=== PATIENT | female | born 1975 | race Caucasian/White ===

== ENCOUNTER → 2016-10-01 | Outpatient (REF) | payer OTHER ==
[2016-10-01 13:17] LABS: PERCENT SATURATION 16.6 % (13.2-37.4)
== END ==
LOC: M LAB REF 11:24
PROVIDERS: ATTEND Internal Medicine Medical Oncology
DX: D59.9 Acquired hemolytic anemia, unspecified (principal)

== ENCOUNTER → 2018-04-21 | Outpatient (REF) | payer OTHER ==
[2018-04-21 17:23] LABS: BASO % 0.6 % (0.0-1.0); HEMATOCRIT 35.3 % (36.0-47.0); HEMOGLOBIN 11.3 g/dl (12.0-15.5); IMMATURE GRANULOCYTE % 0.6 % (0-3.0); LYMPH # 2.2 10^3/uL (1.5-4.5); MEAN CORPUSCULAR HEMOGLOBIN 28.5 pg (27.0-33.0); MEAN CORPUSCULAR VOLUME 88.9 fl (80.0-96.0); MONO # 0.3 10^3/uL (0.0-0.8); MONO % 6.3 % (0.0-5.0); NEUTROPHILS # 2.7 10^3/uL (1.8-7.7); NEUTROPHILS % 51.5 % (36.0-66.0); PLATELET COUNT, AUTOMATED 219 10^3/uL (150-450); RED BLOOD COUNT 3.97 10^6/uL (4.00-5.40); RED CELL DISTRIBUTION WIDTH 14.6 % (11.5-14.5); WHITE BLOOD COUNT 5.3 10^3/uL (4.0-10.0)
[2018-04-21 17:40] LABS: ALBUMIN 3.5 GM/DL (3.2-5.2); ALKALINE PHOSPHATASE 90 U/L (45-117); ALT/SGPT 28 U/L (12-78); ANION GAP 10 MEQ/L (8-16); AST/SGOT 16 U/L (7-37); BILIRUBIN,TOTAL 0.2 MG/DL (0.2-1.0); BLOOD UREA NITROGEN 12 MG/DL (7-18); CALCIUM LEVEL 8.4 MG/DL (8.5-10.1); CARBON DIOXIDE LEVEL 23 MEQ/L (21-32); CHLORIDE LEVEL 109 MEQ/L (98-107); CHOLESTEROL LEVEL 191 MG/DL (<200); CHOLESTEROL RISK RATIO 5.305 (<5); CREATININE FOR GFR 0.61 MG/DL (0.55-1.30); GLOMERULAR FILTRATION RATE > 60.0 (>58); GLUCOSE, FASTING 94 MG/DL (70-100); NON-HDL-C 155 MG/DL; POTASSIUM SERUM 4.3 MEQ/L (3.5-5.1); SODIUM LEVEL 142 MEQ/L (136-145); TRIGLYCERIDES LEVEL 478 MG/DL (<150)
[2018-04-21 21:52] LABS: HDL CHOLESTEROL 36 MG/DL (>40)
[2018-04-22 10:47] LABS: HEPATITIS C VIRUS ABY INDEX 0.1 INDEX (<0.8); HIV 1&2 SCREEN CENTAUR NEGATIVE (NEGATIVE)
== END ==
LOC: M SFHCCAPE 11:52
DX: R11.2 Nausea with vomiting, unspecified (principal); Z11.59 Encounter for screening for other viral diseases; Z11.4 Encounter for screening for human immunodeficiency virus [HIV]; Z13.6 Encounter for screening for cardiovascular disorders; F41.9 Anxiety disorder, unspecified

== ENCOUNTER → 2018-05-25 | Outpatient (CLI) | payer OTHER | LOC: M RAD 09:01 | DX: R93.5 Abnormal findings on diagnostic imaging of other abdominal regions, including retroperitoneum (principal); R11.2 Nausea with vomiting, unspecified | CPT/HCPCS: 76700 ==

== ENCOUNTER → 2018-05-29 | Outpatient (CLI) | payer OTHER ==
[2018-05-29 15:32] LABS: ALBUMIN 3.6 GM/DL (3.2-5.2); ALKALINE PHOSPHATASE 101 U/L (45-117); ALT/SGPT 31 U/L (12-78); AST/SGOT 18 U/L (7-37); BILIRUBIN,DIRECT < 0.1 MG/DL (0.0-0.2); BILIRUBIN,TOTAL 0.2 MG/DL (0.2-1.0); TOTAL PROTEIN 7.2 GM/DL (6.4-8.2)
[2018-05-29 16:46] LABS: CONTROL LINE HPYORI INT CTR LINE PRESENT; H PYLORI QUALITATIVE IgG NEGATIVE (NEGATIVE)
[2018-06-02 08:06] LABS: IgA SERUM (part of Subclasses) 212 mg/dL (87-352); TISSUE TRANSGLUTAMINASE IgA <2 U/mL (0-3)
[2018-06-02 08:06] LABS: H PYLORI SERUM QUANT IGM 13.9 units (0.0-8.9)
== END ==
LOC: M LAB 13:52
DX: R11.2 Nausea with vomiting, unspecified (principal)
CPT/HCPCS: 80076

== ENCOUNTER 2018-06-01 12:45 | Day surgery (SDC) | payer OTHER ==
[2018-06-01] MEDS: NS 1,000 ML IV (13:00)
[2018-06-01] MEDS ORDERED: LIDOCAINE 2% INJ 100 MG/5 ML SDV (FOR ANES.) As Ordered (13:46)
[2018-06-01] MEDS ORDERED: fentaNYL 100 MCG/2 ML INJECTION (J3010) As Ordered (13:46)
[2018-06-01] MEDS ORDERED: PROPOFOL 200 MG/20 ML VIAL As Ordered (13:46)
== END 2018-06-01 14:20 | disposition home or self-care (01) ==
LOC: M OPP 14:20
DX: R11.2 Nausea with vomiting, unspecified (principal); R10.11 Right upper quadrant pain; K29.70 Gastritis, unspecified, without bleeding; K21.9 Gastro-esophageal reflux disease without esophagitis; R12 Heartburn; D64.9 Anemia, unspecified; G43.909 Migraine, unspecified, not intractable, without status migrainosus; M54.9 Dorsalgia, unspecified; F41.9 Anxiety disorder, unspecified; N32.81 Overactive bladder; F17.210 Nicotine dependence, cigarettes, uncomplicated; Z79.899 Other long term (current) drug therapy; Z80.0 Family history of malignant neoplasm of digestive organs; Z80.3 Family history of malignant neoplasm of breast
CPT/HCPCS: 43239

== ENCOUNTER → 2018-08-13 | Outpatient (CLI) | payer OTHER ==
[~2018-08-13] MED LIST: ESZO1TAB6 OP; MECL-86 PO; OMEP40CA2 PO; PROP160C PO; SUMA25TA3 PO; VENL150C43 PO
== END ==
LOC: M LAB 15:52
PROVIDERS: ATTEND Internal Medicine Gastroenterology
DX: K52.9 Noninfective gastroenteritis and colitis, unspecified (principal); B96.81 Helicobacter pylori [H. pylori] as the cause of diseases classified elsewhere

== ENCOUNTER → 2018-09-22 | Outpatient (REF) | payer OTHER ==
[2018-09-22 18:37] LABS: ALBUMIN 3.3 GM/DL (3.2-5.2); ALT/SGPT 23 U/L (12-78); BILIRUBIN,TOTAL 0.4 MG/DL (0.2-1.0); BLOOD UREA NITROGEN 9 MG/DL (7-18); CARBON DIOXIDE LEVEL 26 MEQ/L (21-32); CHLORIDE LEVEL 106 MEQ/L (98-107); CHOLESTEROL LEVEL 196 MG/DL (<200); CHOLESTEROL RISK RATIO 5.444 (<5); CREATININE FOR GFR 0.66 MG/DL (0.55-1.30); GLOMERULAR FILTRATION RATE > 60.0 (>58); GLUCOSE, FASTING 89 MG/DL (70-100); HDL CHOLESTEROL 36 MG/DL (>40); LDL CHOLESTEROL 105 MG/DL (<100); NON-HDL-C 160 MG/DL; POTASSIUM SERUM 4.2 MEQ/L (3.5-5.1); SODIUM LEVEL 138 MEQ/L (136-145); TOTAL PROTEIN 6.9 GM/DL (6.4-8.2); TRIGLYCERIDES LEVEL 275 MG/DL (<150)
[2018-09-22 18:57] LABS: BASO # 0.1 10^3/uL (0.0-0.2); BASO % 0.9 % (0.0-1.0); EOS # 0.3 10^3/uL (0.0-0.50); EOS % 4.3 % (0.0-3.0); HEMATOCRIT 33.6 % (36.0-47.0); HEMOGLOBIN 10.6 g/dl (12.0-15.5); LYMPH # 2.7 10^3/uL (1.5-4.5); LYMPH % 38.5 % (24.0-44.0); MEAN CORPUSCULAR HEMOGLOBIN 26.8 pg (27.0-33.0); MEAN CORPUSCULAR HGB CONC 31.5 g/dl (32.0-36.5); MEAN CORPUSCULAR VOLUME 85.1 fl (80.0-96.0); MONO # 0.5 10^3/uL (0.0-0.8); MONO % 7.8 % (0.0-5.0); NEUTROPHILS # 3.4 10^3/uL (1.8-7.7); NEUTROPHILS % 48.4 % (36.0-66.0); PLATELET COUNT, AUTOMATED 236 10^3/uL (150-450); RED BLOOD COUNT 3.95 10^6/uL (4.00-5.40)
== END ==
LOC: M SFHCCAPE 08:46
PROVIDERS: ATTEND Physician Assistant
DX: E78.1 Pure hyperglyceridemia (principal)

== ENCOUNTER → 2018-10-06 | Outpatient (CLI) | payer OTHER ==
--- NOTE | 2018-10-07 09:28 | REP ---
MRI of the cervical spine without contrast: History: Neck pain. No comparison imaging. Technique: Sagittal and axial T1 and T2-weighted scans are acquired in the usual fashion with and without fat saturation. Sequences include spin echo, turbo spin-echo, and STIR imaging sequences. MRI findings: There is straightening of the normal cervical lordosis. Cervical vertebral body heights are preserved. Cortical and medullary bone signal intensity are normal. There is degenerative disc disease at each level to some degree from C3-4 through C6-7. Cervical cord is normal in coarse, caliber and signal intensity on T1 and T2-weighted scans. Craniocervical junction is unremarkable. Axial and sagittal images taken at the C2-3 level show minimal central disc bulging. No other finding. At C3-4, there is also a small central disc bulge. At C4-5, there is a small focal disc protrusion in a left paracentral position which effaces the ventral margin of the thecal sac and indents the ventral margin of the cord. Canal size is borderline. Midline AP dimension of the thecal sac is 10 mm. No neural foraminal encroachment is appreciated. At C5-6, there is a broad-based right posterior disc protrusion with some associated discogenic spurring. This produces central canal stenosis and mild cord compression. No increased signal intensity is seen in the substance of the cord. There is right-sided uncovertebral spurring producing neural foraminal encroachment. Mild left-sided neural foraminal spurring is seen as well. At C6-7, there is minimal disc bulging. No other finding. The C7-T1 disc level shows no abnormality. Impression: Degenerative spondylosis changes. The dominant abnormality is at C5-6 where there is mild to moderate cord compression and central canal stenosis due to a right posterior broad-based disc protrusion. Bilateral uncovertebral spurring is seen at this level. Electronically Signed by Servando Davis MD 10/07/2018 09:35 A
--- NOTE | 2018-10-07 10:01 | REP ---
MRI lumbar spine without contrast: History: Low back pain, left side. No known injury. No comparison imaging. Technique: Sagittal and axial T1 and T2-weighted scans are acquired in the usual fashion with and without fat saturation. Sequences include spin echo, turbo spin-echo, and STIR imaging sequences. MRI findings: Lumbar vertebral body heights are preserved and alignment is normal. There is no evidence of spondylolysis or spondylolisthesis. Cortical and medullary bone signal intensity are normal. Conus medullaris is normal in position and appearance at L1. No extra vertebral abnormality is observed. At L4-5, there is mild degenerative narrowing of the disc space. Axial and sagittal images show diffuse disc bulging indenting the ventral margin of the thecal sac. Mild facet and ligamentum flavum hypertrophy is seen. Canal size is mildly narrowed at this level, the mid AP dimension of the thecal sac at L4-5 is 9.7 mm. No neural foraminal narrowing is seen. At L5-S1, there is a small left foraminal disc protrusion. There is left posterior disc bulging as well. There is minimal thecal sac compression. At L3-4, there is no significant abnormality. At L2-3, there is slight narrowing of the disc and mild diffuse disc bulging is seen. No central canal stenosis or neural foraminal encroachment is appreciated. At L1-2, no abnormality is seen. Impression: Mild degenerative spondylosis changes at L4-5 with mild central canal stenosis. There is a left foraminal disc protrusion which is small at L5-S1. Electronically Signed by Servando Davis MD 10/07/2018 10:59 A
== END ==
LOC: M RAD 16:10
PROVIDERS: ATTEND Physician Assistant
DX: M50.20 Other cervical disc displacement, unspecified cervical region (principal); M51.27 Other intervertebral disc displacement, lumbosacral region